=== PATIENT | female | born 1950 | race Caucasian/White ===

== ENCOUNTER → 2017-01-28 | Outpatient (CLI) | payer OTHER, MEDICARE ==
[~2017-01-28] MED LIST: ATOR10TA82 PO; AZIT250T PO; LANS15CA27 PO; MULT-506 PO; TAMO20TA9 PO
--- NOTE | 2017-01-28 14:43 | MAMMOGRAPHY REPORT ---
BILATERAL DIGITAL DIAGNOSTIC MAMMOGRAM TOMOSYNTHESIS WITH CAD: 01/28/2017 CLINICAL HISTORY: History of left breast cancer status post lumpectomy July 2015 and radiation . The patient reports no current complaints. TECHNIQUE: Breast tomosynthesis in addition to standard 2D mammography was performed. Current study was also evaluated with a Computer Aided Detection (CAD) system. Bilateral CC and MLO 2-D and tomosy nthesis images and spot magnification left CC and ML views were obtained. COMPARISON: Comparison is made to exams dated: 07/28/2016 mammogram, 01/23/2016 mammogram, 07/15/2015 mammogram, 07/15/2015 MRI biopsy, 07/03/2015 ultrasound, and 07/01/2015 breast MRI - [facility]. BREAST COMPOSITION: The tissue of both breasts is heterogeneously dense, which may obscure small mas ses. FINDINGS: There are stable post surgical changes in the left medial breast at the site of the prior lumpectomy, including stable density, architectural distortion, and surgical clips at the lumpectomy bed. Spot magnification views of the lumpectomy bed demonstrate no suspicious masses or clusters of microcalcifications. Linear scar markers denote scars on the left medial and right lateral breast. The remainder of both breasts are stable compared to prior exams, without suspicious masses, calcific ations, or areas of architectural distortion noted. A biopsy marker clip is again noted in the right medial breast from prior benign MRI guided biopsy. IMPRESSION: ACR BI-RADS CATEGORY 2: BENIGN Stable post treatment changes in the left breast, without mammographic evidence of malignancy in eith er breast. There is no mammographic evidence of malignancy. Recommend routine bilateral mammograms in one year; the patient prefers to remain a diagnostic patient. The patient has been verbally notif ied of the results. Approximately 10% of breast cancers are not detected with mammography. A negative mammographic report should not delay biopsy if a clinically suggestive mass is present. Suzy Del Real M.D. /:01/28/2017 10:52:52 [employer] Filler: Eileen Sy, [facility] letter sent: Normal 1/2 BI-RADS Code: ACR BI-RADS Category 2: Benign
== END | disposition home or self-care (01) ==
LOC: C.MAMM 10:07
PROVIDERS: ATTEND Surgery
DX: N64.89 Other specified disorders of breast (principal)

== ENCOUNTER → 2017-12-29 | Outpatient (CLI) | payer OTHER, MEDICARE ==
[~2017-12-29] MED LIST changes: -AZIT250T PO
--- NOTE | 2017-12-29 15:25 | MAMMOGRAPHY REPORT ---
BILATERAL DIGITAL DIAGNOSTIC MAMMOGRAM TOMOSYNTHESIS WITH CAD AND TARGETED LEFT ULTRASOUND: 12/29/2017 CLINICAL HISTORY: History of left breast cancer status post lumpectomy July 2015 and radiation th era. The patient reports a left breast palpable lump which she noticed November 26; she reports that the lump feels less prominent in size than when she first felt it. TECHNIQUE: Breast tomosynthesis in addition to standard 2D mammography was performed. Current study was also evaluated with a Computer Aided Detection (CAD) system. Bilateral CC and MLO 2D and tomosyn thesis images and spot magnification left CC and ML views were obtained. COMPARISON: Comparison is made to exams dated: 01/28/2017 mammogram, 07/28/2016 mammogram, 01/23/2016 m ammogram, 07/15/2015 mammogram, 07/15/2015 MRI biopsy, and 07/03/2015 ultrasound - [facility]. BREAST COMPOSITION: The tissue of both breasts is heterogeneously dense, which may obscure small mas ses. FINDINGS: There are no suspicious masses, calcifications, or areas of architectural distortion noted in either breast. There has been no significant interval change compared to prior exams. There are stable post surgical changes in the left medial breast at approximately 9:00 from prior lumpectomy, i ncluding stable density, architectural distortion, and surgical clips at the lumpectomy bed. Linear scar markers denote scars on the left breast. A biopsy marker clip is again noted within the right l ower inner quadrant. There is stable postsurgical architectural distortion in the right upper outer quadrant. Targeted ultrasound was performed of the area of the palpable lump pointed out by the patient, in the left breast at approximately 8:00, 8 cm from the nipple. Sonographically normal tissue is seen in t his region, without evidence of a mass or other suspicious sonographic abnormality. IMPRESSION: ACR BI-RADS CATEGORY 2: BENIGN, TARGETED ULTRASOUND ACR BI-RADS CATEGORY 2: BENIGN No suspicious mammographic or sonographic abnormality at the site of the palpable left breast lump po inted out by the patient. There is no mammographic or targeted sonographic evidence of malignancy. Recommend clinical follow-up for the left breast palpable lump; any decision to biopsy should be base d on clinical assessment. Also recommend routine bilateral mammograms in 1 year. The patient has been verbally notified of the results. Approximately 10% of breast cancers are not detected with mammography. A negative mammographic report should not delay biopsy if a clinically suggestive mass is present. Suzy Del Real M.D. ah/:12/29/2017 15:03:30 Manager Lab: Eileen VELASQUEZ(R)(M), [facility] letter sent: Normal 1/2 BI-RADS Code: ACR BI-RADS Category 2: Benign Ultrasound BI-RADS: ACR BI-RADS Category 2: Benign
== END | disposition home or self-care (01) ==
LOC: C.MAMM 14:17
PROVIDERS: ATTEND Obstetrics & Gynecology
DX: R92.8 Other abnormal and inconclusive findings on diagnostic imaging of breast (principal); N63.20 Unspecified lump in the left breast, unspecified quadrant